=== PATIENT | female | born 1985 | race Two or more races ===

== ENCOUNTER 2024-09-11 23:23 | Emergency (ER) | payer MEDICAID, SELFPAY ==
[2024-09-11 23:23] VITALS: BMI 30.7
[2024-09-11 23:34] VITALS: BP 119/68; PULSE 115; RESP 20; TEMP 37.6; O2SAT 96
--- NOTE | 2024-09-11 23:37 | XR_ITS ---
Examination: PA lateral chest 2 views Technique: Upright PA lateral chest 2 views Exam date and time: September 11, 2024 1148 hrs. Indications: Coughing shortness of breath today Findings: Normal heart size. Lungs are clear. The osseous structures are intact Impression: No active disease
--- NOTE | 2024-09-11 23:38 | EDNOTE_ITS ---
Upper Respiratory Inf. RME/HPI General Chief Complaint: Flu Like Symptoms Stated Complaint: FLU LIKE SYMPTOM Time Seen by Provider: 09/11/24 23:27 Arrival date/time: 09/11/24 23:23 39 year old female present to emergency room with c/o headache, cough, shortness of breath for 5 days. hx of asthma SEVERITY: Symptoms are described as being severe with limitations on activities of daily living CONTEXT: The patient is unable to identify any inciting events. DURATION/TIMING: The symptoms started approximately 5 days ago and have been constant since and have been progressive getting worse. ASSOCIATED SYMPTOMS: The patient is unable to identify any other associated symptoms. MODIFYING FACTORS: The patient is unable to identify any alleviating or aggravating symptoms. PERTINENT ROS: no fevers, no pleuritic pain, no ripping or tearing sensations, denies any lower extremity edema and no unilateral swelling, no chest pain no nausea,vomiting, diarrhea, no dizziness/headache no rash no loc/syncope episode no abd/back pain n REVIEW OF SYSTEMS: See History of Present Illness - with the exception of those mentioned in the history of present illness, all other systems reviewed and reported as negative GENERAL: In general the patient is awake, interactive, in an emergency department [place]. HEAD/EYES/EARS/NOSE/THROAT: normo-cephalic, atraumatic, mucus membranes are moist, anicteric, palpebral conjunctiva is pink, trachea is midline. CARDIOVASCULAR: regular rate and regular rhythm, no murmurs, heart sounds are not distant, strong pulses in all four extremities that are equal and symmetric bilateral upper and lower extremities, normal capillary refill. CHEST/PULMONARY: + tachcardia, normal chest rise and fall, good air movement, clear to auscultation bilaterally, normal inspiratory to expiratory ratios without evidence of respiratory distress. NECK: No midline/Paraspinal tenderness, no step off ROM/Strenght intact No Kernig and bruzinski sign. No trauma ABDOMEN: soft, not tender, no masses appreciated BACK: normal range of motion without pain. NEUROLOGICAL: cranio-facial features are symmetric, moves all four extremities equally without obvious limitations or weakness. EXTREMITY: no tenderness to palpation over the long bones or large joints of the bilateral upper and lower extremities, no joint swelling, no joint erythema, no signs of trauma, no unilateral leg swelling and no peripheral edema. SKIN: warm, dry, well-perfused, no jaundice, no rash, no telangiectasias or petechia. PSYCH: calm, cooperative, no evidence of psychosis or agitation Related Data Previous Rx's ?Medication ?Instructions ?Recorded albuterol sulfate 90 mcg/actuation 2 inh inhalation Q6H PRN shortness 09/12/24 breath activated powder inhaler of breath #1 ea prednisone 50 mg tablet 50 mg PO QDAY 5 days #5 tabs 09/12/24 Allergies Allergy/AdvReac Type Severity Reaction Status Date / Time No Known Allergies Allergy Verified 09/11/24 23:25 Course Course Course Narrative: cxr, duoneb, covid/flu, predisone 60mg and tylenol , recheck Patient presenting with asthma exacerbation..? Patient provided albuterol nebulizer and first dose of prednisone.? Following which, patient stated they felt improved.? Discussed continuing albuterol treatments every?-6 hours.? Patient was started on prednisone burst, 50mg a day for 5 days.? Patient is to follow up with primary care provider to further discuss asthma management.? Return to emergency department urgently if new or worsening symptoms develop. ? ? Plan:?? Discharge from ED Albuterol treatments every?-6 hours Prednisone 50 mg a day for 5 more days Follow up with primary care in? week to discuss management of asthma Advised Pt on supportive therapies, including avoiding tobacco smoke, using an allergen-proof mattress, washing bedding every weekk, avoiding smoke exposure, use of AC rather than open windows, staying indoors during high pollen counts, avoid pets or bathe them every weekk, and avoid harsh chemicals such as bleach. Informed to return to [facility] if has new or worsening symptoms. Expressed understanding of and agreement with plan and all questions answered. Quality Measures none Orders Category Date Time Status Bedside COVID-19 Antigen Test NOW Care 09/11/24 23:37 Active Bedside Influenza A&B Antigen Test NOW Care 09/11/24 23:37 Completed XR chest 2V Stat Exams 09/11/24 23:37 Completed Acetaminophen Tab [Tylenol ES Tab] Med 09/11/24 23:37 Discontinued 1,000 mg PO X1 ONE Albuterol* Inhaler [Proventil Inhaler] Med 09/12/24 00:54 Discontinued 2 puff INH X1 ONE Albuterol/Ipratr Rt Angela [Duoneb Rt Angela] Med 09/11/24 23:37 Discontinued 3 ml INH X1 ONE Albuterol/Ipratr Rt Angela [Duoneb Rt Angela] Med 09/12/24 00:10 Discontinued 3 ml INH X1 ONE predniSONE Med 09/11/24 23:37 Discontinued 60 mg PO X1 ONE Reevaluation(s) Reevaluation #1: pt is feeling better after treatment Vital Signs Vital signs: Vital Signs Temperature 99.6 F 09/11/24 23:34 Pulse Rate 115 H 09/11/24 23:34 Respiratory Rate 20 09/11/24 23:34 Blood Pressure 119/68 09/11/24 23:34 Pulse Oximetry (%) 96 09/11/24 23:34 Oxygen Delivery Method Room Air 09/11/24 23:34 Upper Respiratory Infection Patient data External records reviewed:: None Clinical information provided by:: patient Social determinants that could affect healthcare access:: none Patient has the following chronic illnesses:: asthma How is presenting disease/condition affected by chronic disease/condition?: exacerbated by Evaluation data The following diagnostics were reviewed and interpreted by me:: lab results and radiology exam(s) Lab and/or radiology exams considered but not ordered:: none Interpretation Summary: cxr: Findings: Normal heart size. Lungs are clear. The osseous structures are intact Impression: No active disease covid/flu negative Medications / Prescriptions Medications or Prescriptions considered but not ordered:: none Medication administrations:: Medication Administration History Discontinued Medications Acetaminophen (Acetaminophen 500 Mg Tablet) 1,000 mg PO X1 ONE Stop: 09/11/24 23:38 Last Admin: 09/12/24 00:05 Dose: 1,000 mg Documented By: Albuterol (Albuterol Inh 8 Gm) 2 puff INH X1 ONE Stop: 09/12/24 00:55 Albuterol/Ipratropium (Albuterol/Ipratropium (Duoneb) Rt Angela 3 Ml Nebu) 3 ml INH X1 ONE Stop: 09/11/24 23:38 Last Admin: 09/11/24 23:45 Dose: 3 ml Documented By: JESSICA Albuterol/Ipratropium (Albuterol/Ipratropium (Duoneb) Rt Agnela 3 Ml Nebu) 3 ml INH X1 ONE Stop: 09/12/24 00:11 Last Admin: 09/12/24 00:34 Dose: 3 ml Documented By: JESSICA Prednisone (Prednisone 20 Mg Tablet) 60 mg PO X1 ONE Stop: 09/11/24 23:38 Last Admin: 09/12/24 00:05 Dose: 60 mg Documented By: as stated above Consultations Consultation(s) initiated? (list below): No Diagnosis Upper Respiratory Differential Diagnosis: upper respiratory infection, viral infection, bronchitis, influenza and pharyngitis (asthma excerbation, covid ) Most likely diagnosis given after review of the tests above:: asthma exacerbation Admission Indicated Admission indicated?: not indicated Admission Request Was there a request for admission?: No Disposition Plan Disposition Plan: Discharge Discharge Attestation Discharge Attestation: The patient and all family members were given an opportunity to ask questions and understood the discharge instructions. Discharge instructions specifically effects, indications for sooner follow up or return to the emergency department, and the expected course of current diagnosis. Patient condition: Stable Discharge Plan Plan Patient Disposition: HOME (Self Care) Health Concerns: Follow up with PMD as directed Return to ED if symptoms worsen Prescriptions/Referrals Prescriptions/Med Rec: New prednisone 50 mg tablet 50 mg PO QDAY 5 Days Qty: 5 0RF albuterol sulfate 90 mcg/actuation aerosol powdr breath activated 2 inh inhalation Q6H PRN (Reason: shortness of breath) Qty: 1 0RF Problem List Clinical Impression: Asthma exacerbation Patient/Caregiver Discharge Instructions Education Materials: Asthma Print Language: Hungarian Stand Alone Forms: [employer] Award Info., Patient Portal Info Letter
[2024-09-11] MEDS: ALBUTEROL/IPRATROPIUM (Duoneb) RT SOL 3 ML NEBU INH (23:45)
[2024-09-11 23:59] VITALS: PULSE 103; RESP 22; O2SAT 99
[2024-09-12 00:05] VITALS: TEMP 37.6
[2024-09-12] MEDS: predniSONE 20 MG TABLET 60 MG PO (00:05)
[2024-09-12] MEDS: ACETAMINOPHEN 500 MG TABLET 1000 MG PO (00:05)
[2024-09-12 00:34] VITALS: PULSE 107; RESP 20; O2SAT 99
[2024-09-12] MEDS: ALBUTEROL/IPRATROPIUM (Duoneb) RT SOL 3 ML NEBU INH (00:34)
[2024-09-12] MEDS: ALBUTEROL INH 8 GM 2 PUFF INH (01:05)
[2024-09-12 01:11] VITALS: TEMP 37.3
== END 2024-09-12 01:11 | disposition home or self-care (01) ==
LOC: SERX 09-12 03:40
PROVIDERS: Emergency Provider Emergency Medicine
DX: J45.901 Unspecified asthma with (acute) exacerbation (principal); F17.210 Nicotine dependence, cigarettes, uncomplicated
CPT/HCPCS: 71046; 87400; 87811; 94640; 99284; A9270; J7512